=== PATIENT | female | born 1955 | race Caucasian/White ===

== ENCOUNTER 2020-07-31 10:57 | Emergency (ER) | payer BC ==
--- OUTSIDE RECORDS SUMMARY | 2020-07-31 11:00 | XMS REPORT | Continuity of Care Document ---
:[address] [facility] t Address [address] [place] [address] Care Team Providers Name Role Phone Lian HAMILTON Primary Care Physician Unavailable Doctor Unassigned, Name Attending Clinician Unavailable Unke PA Attending Clinician Lian Hamilton MD Attending Clinician Payers Payer Name Policy Type Policy Number Effective Date Expiration Date Shante holloway BLUE CROSS BLUE [id number] 2019 MD Diego villarreal [employer] [place] P[place] 00:00:00 [id number] 06/2019-PresentPPO Problems Condition Condition Condition Status Onset Resolution Last Treating Co mments Source Name Details Category Date Date Treatment Clinician Date Overweight Overweight Disease Active 2019-0 M D 9-11 Anderso 00:00: n 00 Weight Weight Disease Active MD gain gain 3-11 Anderso 00:00: n 00 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 00:00: n 00 Palpitatio Palpitatio Disease Active 2018-06 M D ns ns 1-06 Anderso 00:00: n 00 Iron Iron Disease Active MD deficiency deficiency 3-13 An derso anemia anemia 00:00: n 00 Vaginal Vaginal Disease Active MD dryness on dryness on 3-13 An derso intercours intercours 00:00: n e e 00 History of History of Disease Active 2017- M D malignant malignant 9 Diego rso neoplasm neoplasm 00:00: n of of 00 endometriu endometriu m m Cancer of Cancer of Disease Active Lucian ston endometriu endometriu 1-17 Co thodi m 00:00: st 00 Malignant Malignant Disease Active neoplasm neoplasm 1-17 Jonathon o of of 00:00: n endometriu endometriu 00 m m 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 Social History Social Habit Start Date Stop Date Quantity Comments Source Sex Assigned At [facility] ethodi Tobacco use and 2017-06-24 2017-06-24 Never used [facility] ethodist exposure 00:00:00 00:00:00 Alcohol intake 2017-06-24 2017-06-24 Current [facility]odist 00:00:00 00:00:00 non-drinker of alcohol (finding) Smoking Status Start Date Stop Date Source [facility] Ordered Filled Start Stop Current Ordering Indication Dosage Frequency Signature Comments Components Source Medication Medication Date Date Medication? Clinician (SIG) Name Name inulin 2019-0 Yes Take by MD (FIBER 3-11 mouth as Anderso GUMMIES 15:01: needed. n ORAL) 48 carvedilol 2020-0 Yes 1{tbl} Take 1 MD (COREG) 25 3-11 tablet by Diego rso mg tablet 15:00: mouth n 21 twice daily. ezetimibe 2020-0 Yes 1{tbl} Take 1 MD (ZETIA) 10 3-11 tablet by Diego rso mg tablet 15:00: mouth 2 n 21 (two) times a week [facility]. metFORMIN 2020-0 Yes 2{tbl} Take 2 MD (GLUCOPHAGE 3-11 tablets by An derso ) 500 mg 15:00: mouth n tablet 21 twice daily. CALCIUM 2020-0 Yes 1{tbl} Take 1 MD CARBONATE/V 3-11 tablet by And erso ITAMIN D3 15:00: mouth n (CALCIUM 21 daily. 500 + D, D3, ORAL) UBIDECARENO 2019-0 Yes 1{tbl} Take 1 MD NE (COQ-10 3-11 tablet by Diego rso ORAL) 15:00: mouth n 21 daily. ibuprofen 2019-0 Yes 200mg Take 200 MD (ADVIL,MOTR 3-11 mg by Anderso IN) 200 mg 15:00: mouth n tablet 21 every 8 (eight) hours as needed. amLODIPine 2018- Yes MD (NORVASC) 5 0-08 Anderso mg tablet 00:00: n 00 ONETOUCH 2018-0 Yes VERIO strp 3-28 Anderso 00:00: n 00 ONETOUCH 2018-0 Yes DELANGELO 3-28 Anderso LANCETS 33 00:00: n gauge misc 00 hydrALAZINE 2017-0 Yes 10mg Take 10 mg MD (APRESOLINE 2-21 by mouth 3 An derso ) 10 mg 00:00: (three) n tablet 00 times a day. losartan-hy 2017-0 Yes 1{tbl} QD Take 1 [place] drochloroth 1-18 tablet by Met hodi iazide 16:23: mouth st (HYZAAR) 54 daily. 100-25 mg per tablet carvedilol 2018-0 Yes 25mg Q.5D Take 25 mg [place] (COREG) 25 1-18 by mouth 2 Met hodi MG tablet 16:23: (two) st 54 times a day with meals. ezetimibe 2018-0 Yes 10mg QD Take 10 mg [place] (ZETIA) 10 1-18 by mouth Metho di mg tablet 16:23: daily. st 54 metFORMIN 2018-0 Yes 1000mg Q.5D Take 1,000 [place] (GLUCOPHAGE 1-18 mg by Methodi ) 500 mg 16:23: mouth 2 st tablet 54 (two) times a day with meals. CALCIUM 2018-0 Yes 3{tbl} QD Take 3 [place] CARBONATE/V 1-18 tablets by Co thodi ITAMIN D3 16:23: mouth st (CALCIUM 54 daily. 500 WITH D ORAL) coenzyme 2018-0 Yes 10mg QD Take 10 mg Lucian ston Q10 (CO 1-18 by mouth Methodi Q-10) 10 mg 16:23: daily. st capsule 54 dexlansopra Yes 60mg QD Take 60 mg Davis zole 1-18 by mouth Methodi (DEXILANT) 16:23: daily. st 60 mg 54 capsule KRILL/OM-3/ 2018- Yes 1{capsu QD Take 1 [place] DHA/EPA/SETH 1-18 le} capsule by Me thodi SPHO/AST 16:23: mouth st (MEGARED 54 daily. OMEGA-3 KRILL OIL ORAL) Vital Signs Vital Name Observation Time Observation Value Comments Source Systolic blood pressure 2020-02-11 17:53:38 155 mm[Hg] MD Green Diastolic blood pressure 2020-02-11 17:53:38 73 mm[Hg] MD Green Heart rate 2020-02-11 17:53:38 85 /min MD Sherif drummond Body temperature 2020-02-11 17:53:38 37 Rena MD Ricky rosenbaum Respiratory rate 2020-02-11 17:53:38 18 /min MD Ricky rosenbaum Body weight 2020-02-11 17:53:38 82.3 kg MD Sherif drummond BMI 2020-02-11 17:53:38 29.16 kg/m2 MD Sherif drummond Oxygen saturation in 2020-02-11 17:53:38 95 /min MD Green Arterial blood by Pulse oximetry Procedures This patient has no known procedures. Plan of Care Planned Activity Planned Date Details Comments Source Future Scheduled 2020-01-01 INFLUENZA VACCINE [place] [facility] Test 00:00:00 [code = INFLUENZA VACCINE] Future Scheduled 2007 BREAST CANCER [facility] thodist Test 00:00:00 SCREENING [code = BREAST CANCER SCREENING] Future Scheduled 2007 COLONOSCOPY SCREENING [facility] [facility] Test 00:00:00 [code = COLONOSCOPY SCREENING] Future Scheduled 2007 SHINGLES VACCINES [place] [facility] [facility] Test 00:00:00 (#1) [code = SHINGLES VACCINES (#1)] Future Scheduled 1978 Screening for [facility] thodist Test 00:00:00 malignant neoplasm of cervix (procedure) [code = 448184055] Future Scheduled 1973 COVID-19 VACCINE (1 [place] [employer] Test 00:00:00 of 2) [code = COVID-19 VACCINE (1 of 2)] Encounters Start End Encounter Admission Attending Care Care Encounter Source Date/Time Date/Time Type Type Clinicians Facility Department ID 2020-06-08 2020-06-08 Orders Doctor ELVI [id number] 04 00:00:00 00:00:00 Only Unassigned, MADYSON [id number] [place] [facility] [id number] Results This patient has no known results.
[2020-07-31 12:46] LABS: Absolute Lymphocytes (CBC) 2.2 K/uL (0.7-4.9); Basophils % 0.8 % (0-1.3); Hematocrit 39.8 % (36.0-45.0); Lymphocytes % 15.5 % (15.3-44.8); MPV 7.5 fL (7.6-11.3); RBC Red Blood Cell Count 4.88 M/uL (3.86-4.86)
--- NOTE | 2020-07-31 12:58 | RAD REPORT ---
EXAM DESCRIPTION: CT - Head Brain Wo Cont - 07/31/2020 12:51 pm CLINICAL HISTORY: HEADACHE Headache, drowsiness COMPARISON: No comparisons TECHNIQUE: All CT scans are performed using dose optimization technique as appropriate and may inclu de automated exposure control or mA/KV adjustment according to patient size. FINDINGS: No intracranial hemorrhage, hydrocephalus or extra-axial fluid collection.No areas of brai n edema or evidence of midline shift. The paranasal sinuses and mastoids are clear. The calvarium is intact. IMPRESSION: No acute intracranial abnormality.
--- NOTE | 2020-07-31 13:02 | RAD REPORT ---
EXAM DESCRIPTION: CT - Soft Tissue Neck W/Contr CLINICAL HISTORY: left neck swelling Pain and swelling to the neck COMPARISON: No comparisons TECHNIQUE All CT scans are performed using dose optimization technique as appropriate and may includ e automated exposure control or mA/KV adjustment according to patient size. FINDINGS: Nasopharyngeal tissues are normal in appearance. Fossa Rosenmller are normal. The palatine tonsils are mildly prominent bilaterally. Mildly prominent lymph nodes are seen througho ut the neck bilaterally, without pathologic appearance on CT. Epiglottis and aryepiglottic folds are normal. Piriform sinuses are well aerated. Normal sized thyroi d gland. The vocal cords are normal in appearance. Salivary glands are normal in appearance. No abnormality of significance seen the site of BB marker a long the left neck. Upper lung gagnon are clear. Included intracranial contents are unremarkable. IMPRESSION: No acute or aggressive abnormality is detected.
[2020-07-31 13:03] LABS: ALT/SGPT 25 U/L (12-78); AST/SGOT 16 U/L (15-37); Albumin 3.8 g/dL (3.4-5.0); Alkaline Phosphatase 68 U/L (45-117); BUN Blood Urea Nitrogen 7 mg/dL (7-18); Bicarbonate 26 mmol/L (21-32); Bilirubin Direct < 0.1 mg/dL (0-0.2); Bilirubin Total 0.3 mg/dL (0.2-1.0); Glucose Level 120 mg/dL (74-106); Lipase 146 U/L (73-393); Potassium 3.6 mmol/L (3.5-5.1); Protein, Total 7.7 g/dL (6.4-8.2); Sodium Level 134 mmol/L (136-145)
--- NOTE | 2020-07-31 14:48 | ER ---
Nurse's Notes [facility] Name: Ria Chang Age: 65 yrs Sex: Female : 1955 Arrival Date: 07/31/2020 Time: 10:58 Bed 23 Private MD: Diagnosis: Malaise and fatigue;Leukocytosis Presentation: 07/31 11:12 Chief complaint: Patient states: I've been sick for a long time and had been visiting ca1 the doctor often. Had lab works done 07/28/2020, they called today and said the result was high, but I don't know which one. Also had neck pain, L ear pain, L jaw pain and goes all the way back to my head like it's burning, saw ENT 4 weeks ago, diagnosed with Shingles but am still having pain. I also have R lower back, and R back rib pain. Also have Epigastric pain all the way to the chest that's feels burning. And have diarrhea off and on 2 weeks. Coronavirus screen: Client denies travel out of the [place] in the last 14 days. The client reports previous COVID testing was negative. Date of collection: July 28, 2020. Ebola Screen: Patient negative for fever greater than or equal to 101.5 degrees Fahrenheit, and additional compatible Ebola Virus Disease symptoms Patient denies exposure to infectious person. Patient denies travel to an Ebola-affected area in the 21 days before illness onset. No symptoms or risks identified at this time. Initial Sepsis Screen: Does the patient meet any 2 criteria? No. Patient's initial sepsis screen is negative. Does the patient have a suspected source of infection? No. Patient's initial sepsis screen is negative. Risk Assessment: Do you want to hurt yourself or someone else? Patient reports no desire to harm self or others. Onset of symptoms was July 31, 2020. 11:12 Method Of Arrival: Ambulatory ca1 11:12 Acuity: STEPHEN 3 ca1 Historical: - Allergies: 11:22 No Known Allergies; ca1 - Home Meds: 11:22 amlodipine 5 mg tab 1 tab once daily [Active]; hydralazine 10 mg Oral tab 1 tab daily ca1 [Active]; metformin 500 mg Oral TG24 2 tabs 2 times per day [Active]; azithromycin 250 mg Oral tab 2 tabs once daily [Active]; - PMHx: 11:22 Hypertension; Diabetes - NIDDM; ca1 - PSHx: 11:22 Hysterectomy; Cholecystectomy; ca1 - Immunization history:: Flu vaccine is not up to date. - Social history:: Smoking status: Patient denies any tobacco usage or history of. - Family history:: not pertinent. - Hospitalizations: : No recent hospitalization is reported. Screenin:42 Abuse screen: Denies threats or abuse. Denies injuries from another. Nutritional zb screening: No deficits noted. Tuberculosis screening: No symptoms or risk factors identified. Fall Risk None identified. Assessment: 12:20 Reassessment: ECP at bedside. zb 12:39 General: Appears in no apparent distress. comfortable, Behavior is cooperative, zb anxious, Reports chills for >3 days, feeling ill for > 3 days, fatigue for >3 days, Denies fever. Pain: Complains of pain in xyphoid area and mid-sternal area, left neck Pain radiates to neck Quality of pain is described as burning, tingling, Pain began chronic Is intermittent, episodic. Neuro: Level of Consciousness is awake, alert, obeys commands, Oriented to person, place, time, situation, License Examiner are equal bilaterally Moves all extremities. Gait is steady, Speech is normal, Facial droop on left, Pupils are PERRLA, Reports weakness generalized. Cardiovascular: Heart tones S1 S2 present Capillary refill < 3 seconds Patient's skin is warm and dry. Pulses are all present. Respiratory: Airway is patent Respiratory effort is even, unlabored, Respiratory pattern is regular, symmetrical, Breath sounds are clear bilaterally. GI: Abdomen is round non-distended, Bowel sounds present X 4 quads. Reports diarrhea. : No signs and/or symptoms were reported regarding the genitourinary system. EENT: Oral mucosa is moist. Good dentition noted. Throat is clear is pink. Derm: Skin is intact, is healthy with good turgor, Skin is dry, Skin is normal, Skin temperature is warm. Musculoskeletal: Circulation, motion, and sensation intact. Range of motion: intact in all extremities. 13:30 Reassessment: Patient appears in no apparent distress at this time. Patient and/or zb family updated on plan of care and expected duration. Pain level reassessed. Patient is alert, oriented x 3, equal unlabored respirations, skin warm/dry/pink. 14:28 Reassessment: Patient appears in no apparent distress at this time. Patient and/or zb family updated on plan of care and expected duration. Pain level reassessed. Patient is alert, oriented x 3, equal unlabored respirations, skin warm/dry/pink. patient ambulates to restroom. 14:50 Reassessment: ECP at bedside discussing POC. zb 15:02 Reassessment: patient gait even and steady. d/c instructions given. pt states she will zb f/u with primary care. Vital Signs: 11:12 BP 166 / 87; Pulse 90; Resp 16 S; Temp 97(TE); Pulse Ox 99% on R/A; Weight 78.02 kg ca1 (R); Height 5 ft. 7 in. (170.18 cm) (R); Pain 8/10; 13:16 BP 152 / 68; Pulse 92; Resp 16; Pulse Ox 98% on R/A; zb 14:20 BP 150 / 67; Pulse 90; Resp 16; Pulse Ox 98% on R/A; zb 15:00 BP 148 / 72; Pulse 88; Resp 16; Pulse Ox 100% on R/A; zb 11:12 Body Mass Index 26.94 (78.02 kg, 170.18 cm) ca1 ED Course: 10:58 Patient arrived in ED. as 11:18 Triage completed. ca1 11:22 Arm band placed on right wrist. ca1 12:00 Burt Kraus MD is Attending Physician. rn 12:04 Jasmina Mcdonald RN is Primary Nurse. zb 12:43 Patient has correct armband on for positive identification. Bed in low position. Call zb light in reach. Side rails up X 1. Pulse ox on. NIBP on. 12:50 Inserted saline lock: 20 gauge in right antecubital area, using aseptic technique. zb Blood collected. Patient maintains SpO2 saturation greater than 95% on room air. 12:51 CT Head Brain wo Cont In Process Unspecified. EDMS 12:51 CT Soft Tissue Neck W/contr In Process Unspecified. EDMS 15:02 IV discontinued, intact, bleeding controlled, No redness/swelling at site. Pressure zb dressing applied. 15:02 No provider procedures requiring assistance completed. zb Administered Medications: No medications were administered Outcome: 14:48 Discharge ordered by . rn 15:03 Discharged to home ambulatory. dillon 15:03 Condition: stable 15:03 Discharge instructions given to patient, Instructed on discharge instructions, follow up and referral plans. Demonstrated understanding of instructions, follow-up care. 15:03 Patient left the ED. dillon Signatures: Dispatcher [employer] Marielle Troncoso Roman, MD MD rn Acob, Jacki RN Jasmina Bolton RN RN zb
--- NOTE | 2020-07-31 14:49 | EDPHYS ---
Physician Documentation [facility] Name: Ria Chang Age: 65 yrs Sex: Female : 1955 Arrival Date: 07/31/2020 Time: 10:58 Bed 23 Private MD: ED Physician Burt Kraus HPI: 07/31 13:28 This 65 yrs old Female presents to ER via Ambulatory with complaints of rn Abnormal Lab Results. 13:29 Reports a few weeks of not feeling well, seen by pcp and ENT. No clear diagnosis given. rn Reports told WBC "mildly elevated", seen on Friday and had neg covid/flu/cxr. Reports headache/tingling on scalp/fatigue/malaise/diarrhea/nausea. No sick contacts. No weight loss. No hx of leukemia/lymphoma in family. Told today since unclear diagnosis to come to ER "for evaluation". Put on abx by pcp for possible UTI.. Severity of symptoms: At their worst the symptoms were mild in the emergency department the symptoms are unchanged. The patient has not experienced similar symptoms in the past. The patient has not recently seen a physician. Historical: - Allergies: 11:22 No Known Allergies; ca1 - Home Meds: 11:22 amlodipine 5 mg tab 1 tab once daily [Active]; hydralazine 10 mg Oral tab 1 tab daily ca1 [Active]; metformin 500 mg Oral TG24 2 tabs 2 times per day [Active]; azithromycin 250 mg Oral tab 2 tabs once daily [Active]; - PMHx: 11:22 Hypertension; Diabetes - NIDDM; ca1 - PSHx: 11:22 Hysterectomy; Cholecystectomy; ca1 - Immunization history:: Flu vaccine is not up to date. - Social history:: Smoking status: Patient denies any tobacco usage or history of. - Family history:: not pertinent. - Hospitalizations: : No recent hospitalization is reported. ROS: 13:29 Constitutional: Negative for fever, chills, and weight loss, Eyes: Negative for injury, rn pain, redness, and discharge, ENT: Negative for injury, pain, and discharge, Neck: + neck swelling Cardiovascular: Negative for chest pain, palpitations, and edema, Respiratory: Negative for shortness of breath, cough, wheezing, and pleuritic chest pain, Abdomen/GI: Negative for abdominal pain, vomiting, and constipation, Back: Negative for injury and pain, MS/Extremity: Negative for injury and deformity, Skin: Negative for injury, rash, and discoloration, Neuro: Negative for numbness, tingling, and seizure. Exam: 13:29 Constitutional: This is a well developed, well nourished patient who is awake, alert, rn and in no acute distress. Ambulatory to room without difficulty or assistance. Head/Face: Normocephalic, atraumatic. Eyes: Pupils equal round and reactive to light, extra-ocular motions intact. Lids and lashes normal. Conjunctiva and sclera are non-icteric and not injected. Cornea within normal limits. Periorbital areas with no swelling, redness, or edema. ENT: MMM Neck: Trachea midline, no masses palpated, Supple, full range of motion without nuchal rigidity, or vertebral point tenderness. No Meningismus. Cardiovascular: Regular rate and rhythm. No pulse deficits. Respiratory: No increased work of breathing, no retractions or nasal flaring. Abdomen/GI: soft, non-tender Skin: Warm, dry MS/ Extremity: Pulses equal, no cyanosis. Neurovascular intact. Full, normal range of motion. Equal circumference. Neuro: Awake and alert, GCS 15, oriented to person, place, time, and situation. + left Pires's Palsy (chronic). Motor strength 5/5 in all extremities. Sensory grossly intact. Cerebellar exam normal. Normal gait. Vital Signs: 11:12 BP 166 / 87; Pulse 90; Resp 16 S; Temp 97(TE); Pulse Ox 99% on R/A; Weight 78.02 kg ca1 (R); Height 5 ft. 7 in. (170.18 cm) (R); Pain 8/10; 13:16 BP 152 / 68; Pulse 92; Resp 16; Pulse Ox 98% on R/A; zb 14:20 BP 150 / 67; Pulse 90; Resp 16; Pulse Ox 98% on R/A; zb 15:00 BP 148 / 72; Pulse 88; Resp 16; Pulse Ox 100% on R/A; zb 11:12 Body Mass Index 26.94 (78.02 kg, 170.18 cm) ca1 MDM: 12:00 Patient medically screened. rn 14:43 Differential Diagnosis Viral syndrome, bone marrow problem, lymphadenitis. Data rn reviewed: vital signs, nurses notes, lab test result(s), radiologic studies, CT scan, and as a result, I will discharge patient. Counseling: I had a detailed discussion with the patient and/or guardian regarding: the historical points, exam findings, and any diagnostic results supporting the discharge/admit diagnosis, lab results, radiology results, the need for outpatient follow up, to return to the emergency department if symptoms worsen or persist or if there are any questions or concerns that arise at home. Response to treatment: the patient's symptoms have mildly improved after treatment. Special discussion: I discussed with the patient/guardian in detail that at this point there is no indication for admission to the hospital. It is understood, however, that if the symptoms persist or worsen the patient needs to return immediately for re-evaluation. Based on the history and exam findings, there is no indication for further emergent testing or inpatient evaluation. I discussed with the patient/guardian the need to see the primary care provider for further evaluation of the symptoms. ED course: No acute findings, already had neg COVID/Flu/Strep/CXR, will dc home with pcp f/u. On medication for shingles and abx for UTI.. 07/31 12:19 Order name: CBC with Diff rn 07/31 12:19 Order name: Basic Metabolic Panel rn 07/31 12:19 Order name: Procalcitonin; Complete Time: 14:30 rn 07/31 12:19 Order name: [place] Screen Profile; Complete Time: 14:30 rn 07/31 12:19 Order name: Hepatic Function; Complete Time: 13:11 rn 07/31 12:19 Order name: Lipase; Complete Time: 13:11 rn 07/31 11:23 Order name: EKG; Complete Time: 11:23 ca1 07/31 11:23 Order name: EKG - Nurse/Tech; Complete Time: 11:28 ca1 07/31 12:19 Order name: IV Start; Complete Time: 12:39 rn 07/31 12:19 Order name: CT Head Brain wo Cont; Complete Time: 13:11 rn 07/31 12:19 Order name: CT Soft Tissue Neck W/contr; Complete Time: 13:11 rn 07/31 12:20 Order name: CBC with Automated Diff; Complete Time: 13:11 EDMS 07/31 12:20 Order name: Basic Metabolic Panel; Complete Time: 13:11 EDMS 07/31 14:37 Order name: CREATININE WHOLE BLOOD [facility] 07/31 12:19 Order name: Labs collected and sent; Complete Time: 12:38 rn Administered Medications: No medications were administered Disposition: 07/31/20 14:48 Discharged to Home. Impression: Malaise and fatigue, Leukocytosis. - Condition is Stable. - Discharge Instructions: Leukocytosis. - Medication Reconciliation Form, Thank You Letter, Antibiotic Education, Prescription Opioid Use form. - Follow up: Private Physician; When: As needed; Reason: Recheck today's complaints, Re-evaluation by your physician. - Problem is an ongoing problem. - Symptoms have improved. Signatures: Dispatcher [employer] [facility] Burt Kraus MD MD rn Acob, MELANY Echeverria RN, Zipporah, RN RN zb Corrections: (The following items were deleted from the chart) 15:03 14:48 07/31/2020 14:48 Discharged to Home. Impression: Malaise and fatigue; zb Leukocytosis. Condition is Stable. Forms are Medication Reconciliation Form, Thank You Letter, Antibiotic Education, Prescription Opioid Use. Follow up: Private Physician; When: As needed; Reason: Recheck today's complaints, Re-evaluation by your physician. Problem is an ongoing problem. Symptoms have improved. rn
[2020-07-31 16:22] VITALS: TEMP 97
[2020-07-31 16:26] VITALS: BP 148/72; O2SAT 100
--- NOTE | 2020-07-31 17:08 | EKG ---
Test Date: 2020-07-31 Test Time: 11:27:02 Manager Operating: SHAWN MEASUREMENT RESULTS: Intervals: Rate: 93 UT: 142 QRSD: 68 QT: 340 QTc: 422 [place]: P: 42 UT: 142 QRS: 72 T: 40 INTERPRETIVE STATEMENTS: Normal sinus rhythm Normal ECG Compared to ECG 06/26/2015 15:09:24 No significant changes Electronically Signed On 07-31-20 17:05:55 [employer] SUPERVISOR by Giuseppe Bishop
== END 2020-07-31 15:03 | disposition home or self-care (01) ==
LOC: ER 10:57
DX: D72.829 Elevated white blood cell count, unspecified (principal); R53.83 Other fatigue; I10 Essential (primary) hypertension; E11.9 Type 2 diabetes mellitus without complications
CPT/HCPCS: 93005; 85025; 80048; 36415; 86308; 82565; 80076; 83690; 84145; 70450; 70491; 99284; Q9967